=== PATIENT | female | born 1960 | race Caucasian/White ===

== ENCOUNTER 2024-04-24 09:32 | Outpatient (RCR) | payer OTHER, SELFPAY ==
[2024-04-20 11:23] LABS: Basophils # (Auto) 0.1 Thou/mm3 (0.0-0.2); Basophils % (Auto) 1 % (0-2.5); Eosinophils % (Auto) 1 % (0-10); Hematocrit 38.2 % (36.0-46.0); Hemoglobin 12.9 g/dL (12.0-16.0); Immature Granulocytes % (Auto) 0 % (0-0); Immature Granulocytes Auto 0.01 Thou/mm3 (0.00-0.00); Lymphocytes # (Auto) 0.8 Thou/mm3 (1.0-4.8); Lymphocytes % (Auto) 16 % (10-50); Mean Corpuscular HGB Conc 33.8 g/dl (31.0-37.0); Mean Corpuscular Hemoglobin 34.6 pg (25.0-35.0); Mean Corpuscular Volume 102 fL (80-100); Monocytes # (Auto) 0.3 Thou/mm3 (0.0-0.8); Monocytes % (Auto) 6 % (0-12); Neutrophils # (Auto) 3.6 Thou/mm3 (1.8-7.7); Neutrophils % (Auto) 76 % (37-80); Nucleated Red Blood Cell % 0 /100 WBC (0); Platelet Count 166 Thou/mm3 (140-440); RDW Standard Deviation 47.1 fL (36.4-46.3); Red Blood Count 3.73 Miln/mm3 (4.00-5.20); White Blood Count 4.7 Thou/mm3 (3.6-11.0)
[2024-04-20 12:05] LABS: Alanine Aminotransferase 18 U/L (10-49); Albumin, Serum 4.5 gm/dL (3.4-4.8); Albumin/Globulin Ratio 1.8 (1.2-2.2); Alkaline Phosphatase 86 U/L (46-116); Anion Gap 10 (7-16); Aspartate Amino Transferase 20 U/L (0-34); BUN/Creatinine Ratio 20 Ratio (12-20); Bilirubin,Total 0.5 mg/dL (0.3-1.2); Blood Urea Nitrogen 14 mg/dL (9-23); Calcium 9.4 mg/dL (8.3-10.6); Calcium (Corrected) 9.4 mg/dL (8.5-10.1); Carbon Dioxide 25.6 mMol/L (20.0-31.0); Chloride 105 mMol/L (98-107); Creatinine (Component) 0.7 mg/dL (0.6-1.3); Folate 12.75 ng/mL (>5.38); Globulin 2.5 gm/dL (2.3-3.5); Glucose 125 mg/dL (74-106); Osmolality,Calculated 282 (275-295); Potassium 3.6 mMol/L (3.4-5.1); Sodium 141 mMol/L (136-145); Vitamin B12 361 pg/mL (211-911); eGFR > 60 See Note
[2024-04-20 12:09] LABS: Carcinoembryonic Antigen 1.7 ng/mL (0.0-5.0)
--- NOTE | 2024-04-23 11:00 | CTCFLWUP_ITS ---
Patient: MACI GREEN : 1960 Page 2 of 2 FOLLOW UP NOTE DATE OF SERVICE: 04/23/2024 NAME: MACI GREEN ACCOUNT: [id number] : 1960 AGE: 63 INTERVAL HISTORY: Patient is on Ibrance and letrozole for her advanced breast cancer. Her last scan in December 2023 was negative. Patient says she was doing very well on the treatment other than mild fatigue. She no ticed having burning urination last week and was started on antibiotics per her primary care. Patien t's symptoms resolved and now doing better. She is on her drug holiday week. She will be restarting Ibrance tomorrow. She is here to review her blood work. 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 Patient is taking letrozole and Ibranc e and tolerating well. She is in wheelchair secondary to her cerebral palsy. 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 She understands she is in complete remission and very thankful to her oncologist. Patient takes calcium and vitamin D3 daily. Oncological history November 2017: Patient noticed recurrent rash on the underside of the left breast. June 2018: The rash on the left breast has become more prominent. 11/06/2018: Patient had left breast skin punch biopsy. Pathology showed ER positive, HI positive mode rately differentiated invasive ductal carcinoma. HER-2/freya staining was not done. 12/20/2018: Patient had a PET CT scan done. PET scan showed multiple FDG avid cutaneous breast nodule s, irregular, hypermetabolic skin thickening and confluent FDG avid intraparenchymal masses. Finding s are suspicious for inflammatory breast cancer. Bilateral FDG avid axillary and lower cervical lymp h nodes, suspicious for manjeet metastasis. An FDG avid retroperitoneal lymph node measuring up to 20 mm in short axis with an SUV max of 4.4 and demonstrates mass-effect on esophagus. Scattered FDG michael d osseous metastasis. Moderate left pleural effusion with associated subtotal atelectasis of the lef t lower lobe and lingula. Trace right pleural effusion. Moderate pericardial effusion. 12/28/2018: Patient had a repeat left breast skin nodule punch biopsy at [facility] of [place]. Patholog y confirmed infiltrating ductal carcinoma histologic grade 2. ER 10% positive, HI 20% positive, HER- 2/freya negative, Ki-67 25% (unfavorable). She also had Chemo-Port placed on the right side of the jose [address]. 01/29/2019: Ultrasound-guided left-sided thoracentesis. 700 mL of fluid removed. Cytology was positi ve for malignant pericardial effusion. 01/31/2019: Echocardiogram?ejection fraction between 55 and 60%. Large pericardial effusion with ligh t right atrial collapse suggesting early tamponade was also noted. 02/03/2019: Patient had pericardiocentesis done at [facility]. 300 cc of serous fluid was drained out. Pericardial drainage catheters was placed which was removed few days later. 02/19/2019: BRCA testing is negative for mutations. 02/22/2019? 05/03/2019: Patient had 4 cycles of AC chemotherapy. 05/24/2019?10/04/2019: Patient was treated with weekly Taxol. 10/10/2019: Patient is started on letrozole 2.5 mg p.o. daily and Ibrance 75 mg p.o. daily on a 21-day on and 7 days off regimen. 12/03/2019: Patient complains of lower extremity swelling for 3 weeks duration. Echocardiogram?LVEF 50-55%. Patient also had Doppler ultrasound of both lower extremities which was negative for DVT. 07/04/2020: PET CT scan? 12/03/2020: PET CT scan? 05/01/2021: [facility] CDx? 07/23/2021: PET/CT scan? 02/04/2022: PET/CT scan? 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 aspirin - 81 mg 1 tab As directed 2. Calcium + Vitamin D - 600 mg calcium- 200 unit 1 tab Twice a Day 3. Claritin - 10 mg Daily 4. ferrous sulfate - 325 mg (65 mg iron) 1 tab Daily 5. Ibrance - 75 mg 1 tab Daily 6. letrozole - 2.5 mg 1 tab Daily 7. metoprolol succinate - 25 mg 1 tab Daily Medications Last Reconciled by Alisha Miranda MA on 04/23/2024 ALLERGIES: Penicillins; Sulfa (Sulfonamide Antibiotics); codeine sulfate REVIEW OF SYSTEMS: A complete 14-point review of systems was performed and is negative except as noted in interval histo ry. PHYSICAL EXAMINATION: VITAL SIGNS: PAIN: 0 - No pain ECOG Performance Status: 1 - Symptomatic; ambulatory; restricted in strenuous activity GENERAL APPEARANCE: Appears well, in no apparent distress, appropriately interactive. HEENT: Normocephalic, no temporal wasting, normal conjunctiva, no scleral icterus, normal hearing, li ps without lesions, neck normal range of motion. CARDIOVASCULAR: Not assessed. PULMONARY: Normal respiratory effort, no respiratory distress or use of accessory muscles, speaking i n full sentences, no tachypnea. EXTREMITIES: No pedal edema or cyanosis. SKIN: Normal skin appearance. NEUROLOGIC: Alert and oriented x4. Patient is wheelchair-bound secondary to cerebral palsy PSHYCHIATRIC: Appropriate affect, mood normal, behavior normal, intact thought and speech. LABORATORY DATA: I have personally reviewed and interpreted each of the patient?s relevant lab tests, abnormal finding s are below: Date 04/20/24 ??GLUCOSE,RANDOM?(mg/dL) 125?H ??BLOOD?UREA?NITROGEN?(mg/dL) 14 ??CREATININE?(mg/dL) 0.70 ??SODIUM?(mmol/L) 141 ??POTASSIUM?(mmol/L) 3.6 ??CHLORIDE?(mmol/L) 105 ??CrCl?(CandG)?(ml/min) 95.47 ??AST/SGOT?(Unit/L) 20 ??ALT/SGPT?(Unit/L) 18 ??ALKALINE?PHOSPHATASE?(Unit/L) 86 ??BILIRUBIN,?TOTAL?(mg/dL) 0.5 ??PROTEIN?TOTAL?(gm/dl) 7.0 ??ALBUMIN,?SERUM?(gm/dl) 4.5 ??GLOBULIN?(gm/dl) 2.5 ??ALBUMIN/GLOBULIN?RATIO 1.8 ??CALCIUM,?SERUM?(mg/dL) 9.4 ??CALCIUM?SERUM?(CORRECTED)?(mg/dL) 9.4 ASSESSMENT/PLAN: #1 metastatic ER positive HI positive HER2 negative inflammatory left-sided breast cancer with a dif fuse metastatic disease now in complete remission on Activent endocrine therapy with Ibrance and letr ozole PET CT scan done on 09/22/2023 is essentially negative for metastatic disease.. Tolerating letrozole and Ibrance very well without any significant side effects. [facility] CDx test did not show any actionable mutations She is tolerating letrozole, Ibrance as well as Xgeva very well without any side effects. Initially status post 4 cycles of AC chemotherapy followed by weekly Taxol. Dr. Jonas is following her for history of pericardial effusion which is resolved at this time. History of left-sided thoracentesis as well as pericardiocentesis done as described above in the past . Metastatic ER positive, HI positive, HER-2/freya negative inflammatory left-sided breast cancer with di ffuse metastatic disease as described above. Patient advised to restart Ibrance #2 cerebral palsy. Wheelchair-bound follow-up with PCP #3 pancytopenia Patient have leukopenia with A NC above thousand Continue to monitor closely Will check folate and B12 as patient have elevated MCV Patient did not complete B12 folic acid or other nutritional labs and advised to repeat them today CBC CMP folic acid B12 ferritin iron panel RETURN TO CLINIC: Telephone visit in 2 months BILLING AND COMPLIANCE: I reviewed external records from providers outside my specialty as summarized above. I spent a total of 50 minutes on this patient?s care on the day of their visit excluding time spent related to any bi lled procedures. This time includes time spent with the patient as well as time spent documenting in the medical record, reviewing patients records and tests, obtaining history, placing orders, communi cating with other healthcare professionals, counseling the patient, family or caregiver, and/or care coordination for the diagnoses above. Electronically Signed by: Cesar Trammell MD T: 10:58 AM CC: Kathrin?Larisa? PCP: Darrius Beal Referring: Darrius Beal This document was completed utilizing speech recognition software. Grammatical errors, random word in sertions, pronoun errors, and incomplete sentences are an occasional consequence of this system due t o software limitations, ambient noise, and hardware issues. Any formal questions or concerns about th e content, text or information contained within the body of this dictation should be directly address ed to the provider for clarification.
[2024-04-24 11:05] LABS: Folate 14.91 ng/mL (>5.38); Vitamin B12 376 pg/mL (211-911)
[2024-04-24 11:06] LABS: Ferritin 784 ng/mL (7.3-270.7); Total Iron Binding Capacity 251 mcg/dL (250-425)
[2024-04-24 11:17] LABS: Iron 69 mcg/dL (50-170); Percent Iron Saturation 27 % (20-55); Unsaturated Iron Binding 182 (225-295)
[2024-04-24 11:39] LABS: CA 15-3 12.6 U/mL (<32.4)
== END 2024-04-24 23:59 | disposition home or self-care (01) ==
LOC: SCTC 09:32
PROVIDERS: PCP Nurse Practitioner Family; Referring Provider Nurse Anesthetist, Certified Registered; Visit Provider Internal Medicine Hematology & Oncology
DX: C50.112 Malignant neoplasm of central portion of left female breast (principal); Z17.0 Estrogen receptor positive status [ER+]; Z17.21 Progesterone receptor positive status; Z17.32 Human epidermal growth factor receptor 2 negative status; Z79.811 Long term (current) use of aromatase inhibitors; D61.818 Other pancytopenia; Z92.21 Personal history of antineoplastic chemotherapy
CPT/HCPCS: 36591; 80053; 82378; 82607; 82728; 82746; 83540; 83550; 85025; 86300; 96372; 99212; A4216; J0897; J1642; G0463

== ENCOUNTER 2024-07-23 13:14 | Outpatient (RCR) | payer OTHER, SELFPAY ==
[2024-07-18 16:03] LABS: Basophils # (Auto) 0.1 Thou/mm3 (0.0-0.2); Basophils % (Auto) 1 % (0-2.5); Eosinophils # (Auto) 0.1 Thou/mm3 (0.0-0.5); Eosinophils % (Auto) 2 % (0-10); Hematocrit 35.3 % (36.0-46.0); Hemoglobin 12.8 g/dL (12.0-16.0); Immature Granulocytes % (Auto) 0 % (0-0); Immature Granulocytes Auto 0.01 Thou/mm3 (0.00-0.00); Lymphocytes # (Auto) 1.2 Thou/mm3 (1.0-4.8); Lymphocytes % (Auto) 32 % (10-50); Mean Corpuscular HGB Conc 36.3 g/dl (31.0-37.0); Mean Corpuscular Hemoglobin 35.6 pg (25.0-35.0); Mean Corpuscular Volume 98 fL (80-100); Monocytes # (Auto) 0.4 Thou/mm3 (0.0-0.8); Monocytes % (Auto) 11 % (0-12); Neutrophils % (Auto) 53 % (37-80); Nucleated Red Blood Cell % 0 /100 WBC (0); Platelet Count 187 Thou/mm3 (140-440); RDW Standard Deviation 47.5 fL (36.4-46.3); White Blood Count 3.8 Thou/mm3 (3.6-11.0)
[2024-07-18 16:22] LABS: Alanine Aminotransferase 32 U/L (10-49); Albumin, Serum 3.9 gm/dL (3.4-4.8); Albumin/Globulin Ratio 1.6 (1.2-2.2); Alkaline Phosphatase 93 U/L (46-116); Anion Gap 9 (7-16); Aspartate Amino Transferase 27 U/L (0-34); BUN/Creatinine Ratio 27 Ratio (12-20); Bilirubin,Total 0.2 mg/dL (0.3-1.2); Blood Urea Nitrogen 16 mg/dL (9-23); Calcium 9.4 mg/dL (8.3-10.6); Calcium (Corrected) 9.5 mg/dL (8.5-10.1); Chloride 107 mMol/L (98-107); Creatinine (Component) 0.6 mg/dL (0.6-1.3); Globulin 2.4 gm/dL (2.3-3.5); Glucose 85 mg/dL (74-106); Osmolality,Calculated 285 (275-295); Potassium 3.5 mMol/L (3.4-5.1); Sodium 143 mMol/L (136-145); Total Protein 6.3 gm/dL (5.7-8.2); eGFR > 60 See Note
[2024-07-18 16:38] LABS: CA 15-3 12.6 U/mL (<32.4); Carcinoembryonic Antigen 1.8 ng/mL (0.0-5.0)
--- NOTE | 2024-07-19 14:12 | CTCFLWUP_ITS ---
Patient: MACI GREEN : 1960 Page 2 of 2 FOLLOW UP NOTE DATE OF SERVICE: 07/19/2024 NAME: MACI GREEN ACCOUNT: [id number] : 1960 AGE: 63 INTERVAL HISTORY: Patient is on Ibrance and letrozole for her advanced breast cancer. Her last scan in December 2023 was negative. Patient says she was doing very well on the treatment other than mild fatigue. Patient have no problems with ibrance. She have no new symptoms. 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 Patient is taking letrozole and Ibrance and tolerating well. She is in wheelchair secondary to her cerebral palsy. 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 She understands she is in complete remission and very thankful to her oncologist. Patient takes calcium and vitamin D3 daily. Oncological history November 2017: Patient noticed recurrent rash on the underside of the left breast. June 2018: The rash on the left breast has become more prominent. 11/06/2018: Patient had left breast skin punch biopsy. Pathology showed ER positive, MT positive moderately differentiated invasive ductal carcinoma. HER- 2/freya staining was not done. 12/20/2018: Patient had a PET CT scan done. PET scan showed multiple FDG avid cutaneous breast nodules, irregular, hypermetabolic skin thickening and confluent FDG avid intraparenchymal masses. Findings are suspicious for inflammatory breast cancer. Bilateral FDG avid axillary and lower cervical lymp h nodes, suspicious for manjeet metastasis. An FDG avid retroperitoneal lymph node measuring up to 20 mm in short axis with an SUV max of 4.4 and demonstrates mass-effect on esophagus. Scattered FDG avid osseous metastasis. Moderate left pleural effusion with associated subtotal atelectasis of the left lower lobe and lingula. Trace right pleural effusion. Moderate pericardial effusion. 12/28/2018: Patient had a repeat left breast skin nodule punch biopsy at [facility] of [place]. Pathology confirmed infiltrating ductal carcinoma histologic grade 2. ER 10% positive, MT 20% positive, HER-2/freya negative, Ki-67 25% (unfavorable). She also had Chemo-Port placed on the right side of the chest. 01/29/2019: Ultrasound-guided left-sided thoracentesis. 700 mL of fluid removed. Cytology was positive for malignant pericardial effusion. 01/31/2019: Echocardiogram?ejection fraction between 55 and 60%. Large pericardial effusion with light right atrial collapse suggesting early tamponade was also noted. 02/03/2019: Patient had pericardiocentesis done at [facility]. 300 cc of serous fluid was drained out. Pericardial drainage catheters was placed which was removed few days later. 02/19/2019: BRCA testing is negative for mutations. 02/22/2019? 05/03/2019: Patient had 4 cycles of AC chemotherapy. 05/24/2019?10/04/2019: Patient was treated with weekly Taxol. 10/10/2019: Patient is started on letrozole 2.5 mg p.o. daily and Ibrance 75 mg p.o. daily on a 21-day on and 7 days off regimen. 12/03/2019: Patient complains of lower extremity swelling for 3 weeks duration. Echocardiogram?LVEF 50-55%. Patient also had Doppler ultrasound of both lower extremities which was negative for DVT. 07/04/2020: PET CT scan? 12/03/2020: PET CT scan? 05/01/2021: [facility] CDx? 07/23/2021: PET/CT scan? 02/04/2022: PET/CT scan? 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 aspirin - 81 mg 1 tab As directed 2. Calcium + Vitamin D - 600 mg calcium- 200 unit 1 tab Twice a Day 3. Claritin - 10 mg Daily 4. ferrous sulfate - 325 mg (65 mg iron) 1 tab Daily 5. Ibrance - 75 mg 1 tab Daily 6. letrozole - 2.5 mg 1 tab Daily 7. metoprolol succinate - 25 mg 1 tab Daily Medications Last Reconciled by Alisha Miranda MA on 07/19/2024 ALLERGIES: Penicillins; Sulfa (Sulfonamide Antibiotics); codeine sulfate REVIEW OF SYSTEMS: A complete 14-point review of systems was performed and is negative except as noted in interval history. PHYSICAL EXAMINATION: VITAL SIGNS: PAIN: 0 - No pain ECOG Performance Status: 0 - Asymptomatic and fully active GENERAL APPEARANCE: Appears well, in no apparent distress, appropriately interactive. HEENT: Normocephalic, no temporal wasting, normal conjunctiva, no scleral icterus, normal hearing, lips without lesions, neck normal range of motion. CARDIOVASCULAR: Not assessed. PULMONARY: Normal respiratory effort, no respiratory distress or use of accessory muscles, speaking in full sentences, no tachypnea. EXTREMITIES: No pedal edema or cyanosis. SKIN: Normal skin appearance. NEUROLOGIC: Alert and oriented x4. Patient is wheelchair-bound secondary to cerebral palsy PSHYCHIATRIC: Appropriate affect, mood normal, behavior normal, intact thought and speech. LABORATORY DATA: I have personally reviewed and interpreted each of the patient?s relevant lab tests, abnormal findings are below: Date 04/24/24 07/18/24 ??WHITE?BLOOD?COUNT?(Thou/mm3) ? 3.8 ??RED?BLOOD?COUNT?(Miln/mm3) ? 3.60?L ??HEMOGLOBIN?(gm/dl) ? 12.8 ??HEMATOCRIT?(%) ? 35.3?L ??PLATELET?COUNT?(Thou/mm3) ? 187 ??NEUTROPHILS?%,?AUTO?(%) ? 53 ??LYMPH?%,?AUTO?(%) ? 32 ??NEUTROPHILS,?AUTO?(Thou/mm3) ? 2.0 ??GLUCOSE,RANDOM?(mg/dL) ? 85 ??BLOOD?UREA?NITROGEN?(mg/dL) ? 16 ??CREATININE?(mg/dL) ? 0.60 ??SODIUM?(mmol/L) ? 143 ??POTASSIUM?(mmol/L) ? 3.5 ??CHLORIDE?(mmol/L) ? 107 ??CrCl?(CandG)?(ml/min) ? 113.89 ??AST/SGOT?(Unit/L) ? 27 ??ALT/SGPT?(Unit/L) ? 32 ??ALKALINE?PHOSPHATASE?(Unit/L) ? 93 ??BILIRUBIN,?TOTAL?(mg/dL) ? 0.2?L ??PROTEIN?TOTAL?(gm/dl) ? 6.3 ??ALBUMIN,?SERUM?(gm/dl) ? 3.9 ??GLOBULIN?(gm/dl) ? 2.4 ??ALBUMIN/GLOBULIN?RATIO ? 1.6 ??CALCIUM,?SERUM?(mg/dL) ? 9.4 ??CALCIUM?SERUM?(CORRECTED)?(mg/dL) ? 9.5 ??CEA?(O*)?(ng/ml) ? 1.8 ??TOTAL?IRON?BINDING?CAP?(S*)?(mcg/dL) 251 ? ??UNBOUND?IBC?(mcg/dL) 182?L ? ASSESSMENT/PLAN: #1 metastatic ER positive MT positive HER2 negative inflammatory left-sided breast cancer with a diffuse metastatic disease now in complete remission on Activent endocrine therapy with Ibrance and letrozole PET CT scan done on 09/22/2023 is essentially negative for metastatic disease.. Tolerating letrozole and Ibrance very well without any significant side effects. [employer] CDx test did not show any actionable mutations She is tolerating letrozole, Ibrance as well as Xgeva very well without any side effects. Initially status post 4 cycles of AC chemotherapy followed by weekly Taxol. Dr. Jonas is following her for history of pericardial effusion which is resolved at this time. History of left-sided thoracentesis as well as pericardiocentesis done as described above in the past. Patient advised to restart Ibrance Will get pet scan and laura for monitoring Cont current therapy #2 cerebral palsy. Wheelchair-bound follow-up with PCP #3 pancytopenia Patient have leukopenia with ANC above thousand Continue to monitor closely Will check folate and B12 as patient have elevated MCV Patient did not complete B12 folic acid or other nutritional labs and advised to repeat them today ORDERS: Order # Description [id number] Comprehensive Metabolic Panel - 12 + CBC with Auto Diff [id number] CA 15-3 [id number] CEA [id number] Follow Up 3 Months [id number] PET/CT of Skull to mid-thigh for Restaging RETURN TO CLINIC: 2 months BILLING AND COMPLIANCE: I reviewed external records from providers outside my specialty as summarized above. I spent a total of 50 minutes on this patient?s care on the day of their visit excluding time spent related to any billed procedures. This time includes time spent with the patient as well as time spent documenting in the medical record, reviewing patients records and tests, obtaining history, placing orders, communicating with other healthcare professionals, counseling the patient, family or caregiver, and/or care coordination for the diagnoses above. Electronically Signed by: Cesar Trammell MD T: 2:10 PM CC: CHRISTINA Ramírez PCP: Cesar Trammell Referring: Cesar Trammell This document was completed utilizing speech recognition software. Grammatical errors, random word insertions, pronoun errors, and incomplete sentences are an occasional consequence of this system due to software limitations, ambient noise, and hardware issues. Any formal questions or concerns about the content, text or information contained within the body of this dictation should be directly addressed to the provider for clarification.
== END 2024-07-23 23:59 | disposition home or self-care (01) ==
LOC: SCTC 13:14
PROVIDERS: PCP Family Medicine; Referring Provider Internal Medicine Hematology & Oncology; Visit Provider Internal Medicine Hematology & Oncology
DX: C50.112 Malignant neoplasm of central portion of left female breast (principal); Z17.0 Estrogen receptor positive status [ER+]; Z17.21 Progesterone receptor positive status; Z17.32 Human epidermal growth factor receptor 2 negative status; Z79.811 Long term (current) use of aromatase inhibitors; G80.9 Cerebral palsy, unspecified; Z99.3 Dependence on wheelchair; D61.818 Other pancytopenia
CPT/HCPCS: 36591; 80053; 82378; 85025; 86300; 96372; 99212; A4216; J0897; J1642; G0463

== ENCOUNTER → 2024-07-31 | Outpatient (CLI) | payer OTHER, SELFPAY ==
[2024-07-31 10:46] LABS: Basophils # (Auto) 0.1 Thou/mm3 (0.0-0.2); Basophils % (Auto) 1 % (0-2.5); Eosinophils # (Auto) 0.1 Thou/mm3 (0.0-0.5); Eosinophils % (Auto) 2 % (0-10); Hematocrit 41.8 % (36.0-46.0); Hemoglobin 14.6 g/dL (12.0-16.0); Immature Granulocytes % (Auto) 0 % (0-0); Immature Granulocytes Auto 0.02 Thou/mm3 (0.00-0.00); Immature Reticulocyte Fraction 13.7 % (3.0-15.9); Lymphocytes # (Auto) 0.9 Thou/mm3 (1.0-4.8); Lymphocytes % (Auto) 21 % (10-50); Mean Corpuscular HGB Conc 34.9 g/dl (31.0-37.0); Mean Corpuscular Hemoglobin 35.3 pg (25.0-35.0); Mean Corpuscular Volume 101 fL (80-100); Monocytes # (Auto) 0.3 Thou/mm3 (0.0-0.8); Monocytes % (Auto) 6 % (0-12); Neutrophils # (Auto) 3.1 Thou/mm3 (1.8-7.7); Neutrophils % (Auto) 70 % (37-80); Nucleated Red Blood Cell % 0 /100 WBC (0); Platelet Count 256 Thou/mm3 (140-440); RDW Standard Deviation 49.2 fL (36.4-46.3); Red Blood Count 4.14 Miln/mm3 (4.00-5.20); Reticulocyte % (Auto) 1.5 % (0.5-1.5); Reticulocyte Absolute Auto 61.7 Biln/L (25.0-75.0); Reticulocyte Hgb Content 41.1 pg (28.0-35.0); White Blood Count 4.5 Thou/mm3 (3.6-11.0)
[2024-07-31 11:03] LABS: Ferritin 1129 ng/mL (7.3-270.7); T4 (Thyroxine) 10.5 mcg/dL (4.5-10.9)
[2024-07-31 11:07] LABS: Cardiac Risk Estimate 2.9 RATIO (3.7-5.6); Cholesterol 203 mg/dL (132-200); HDL Cholesterol 70 mg/dL (40-60); LDL Cholesterol,Calculated 102 mg/dL (0-130); Thyroid Stimulating Hormone 3.55 uIU/mL (0.55-4.78); Triglycerides 154 mg/dL (30-150)
[2024-07-31 11:25] LABS: Glucose Estimated Average 103 mg/dL (80-131); Hemoglobin A1C 5.2 % Hgb (4.8-6.0)
[2024-08-03 06:56] LABS: Thyroid Peroxidase Antibodies* 399 IU/mL (<9)
== END | disposition home or self-care (01) ==
LOC: COPL 09:32
PROVIDERS: PCP Nurse Practitioner Family; Referring Provider Nurse Practitioner Family; Visit Provider Nurse Practitioner Family
DX: R79.89 Other specified abnormal findings of blood chemistry (principal); R53.83 Other fatigue; E78.5 Hyperlipidemia, unspecified
CPT/HCPCS: 36415; 80061; 82728; 83036; 84436; 84443; 85025; 85046; 86376

== ENCOUNTER 2024-08-08 08:25 | Outpatient (RCR) | payer OTHER, SELFPAY | END 2024-08-22 23:59 | disposition home or self-care (01) | LOC: SCTC 08:25 | PROVIDERS: PCP Nurse Practitioner Family; Referring Provider Nurse Practitioner Family; Visit Provider Internal Medicine Hematology & Oncology | DX: Z45.2 Encounter for adjustment and management of vascular access device (principal); C50.112 Malignant neoplasm of central portion of left female breast; Z17.0 Estrogen receptor positive status [ER+]; Z17.21 Progesterone receptor positive status; Z17.32 Human epidermal growth factor receptor 2 negative status; Z79.811 Long term (current) use of aromatase inhibitors; G80.9 Cerebral palsy, unspecified; D61.818 Other pancytopenia | CPT/HCPCS: 96523; A4216; J1642 ==

== ENCOUNTER 2024-08-23 08:10 | Outpatient (RCR) | payer OTHER, SELFPAY | END 2024-09-22 23:59 | disposition home or self-care (01) | LOC: SCTC 08:10 | PROVIDERS: PCP Nurse Practitioner Family; Referring Provider Nurse Practitioner Family; Visit Provider Internal Medicine Hematology & Oncology | DX: C50.112 Malignant neoplasm of central portion of left female breast (principal); Z17.0 Estrogen receptor positive status [ER+]; Z17.21 Progesterone receptor positive status; Z17.32 Human epidermal growth factor receptor 2 negative status; Z79.811 Long term (current) use of aromatase inhibitors; G80.9 Cerebral palsy, unspecified; D61.818 Other pancytopenia; Z99.3 Dependence on wheelchair | CPT/HCPCS: 36591; A4216; J1642 ==

== ENCOUNTER → 2024-09-25 | Outpatient (CLI) | payer OTHER, SELFPAY ==
[2024-09-25 09:45] LABS: Basophils # (Auto) 0.1 Thou/mm3 (0.0-0.2); Basophils % (Auto) 3 % (0-2.5); Eosinophils # (Auto) 0.1 Thou/mm3 (0.0-0.5); Eosinophils % (Auto) 6 % (0-10); Hematocrit 37.4 % (36.0-46.0); Hemoglobin 13.3 g/dL (12.0-16.0); Immature Granulocytes % (Auto) 0 % (0-0); Lymphocytes # (Auto) 0.8 Thou/mm3 (1.0-4.8); Lymphocytes % (Auto) 32 % (10-50); Mean Corpuscular HGB Conc 35.6 g/dl (31.0-37.0); Mean Corpuscular Hemoglobin 37.2 pg (25.0-35.0); Mean Corpuscular Volume 105 fL (80-100); Monocytes # (Auto) 0.2 Thou/mm3 (0.0-0.8); Monocytes % (Auto) 8 % (0-12); Neutrophils # (Auto) 1.3 Thou/mm3 (1.8-7.7); Neutrophils % (Auto) 52 % (37-80); Nucleated Red Blood Cell % 0 /100 WBC (0); Platelet Count 242 Thou/mm3 (140-440); RDW Standard Deviation 50.5 fL (36.4-46.3); Red Blood Count 3.58 Miln/mm3 (4.00-5.20)
[2024-09-25 10:01] LABS: White Blood Count 2.6 Thou/mm3 (3.6-11.0)
[2024-09-25 10:42] LABS: Ferritin 576 ng/mL (7.3-270.7)
[2024-10-01 06:47] LABS: Thyroid Peroxidase Antibodies* 335 IU/mL (<9)
== END | disposition home or self-care (01) ==
LOC: COPL 08:40
PROVIDERS: PCP Family Medicine; Referring Provider Nurse Practitioner Family; Visit Provider Nurse Practitioner Family
DX: R79.89 Other specified abnormal findings of blood chemistry (principal); R94.6 Abnormal results of thyroid function studies
CPT/HCPCS: 36415; 82728; 85025; 86376

== ENCOUNTER 2024-10-22 11:11 | Outpatient (RCR) | payer OTHER, SELFPAY ==
[2024-10-08 10:29] LABS: Basophils # (Auto) 0.1 Thou/mm3 (0.0-0.2); Basophils % (Auto) 2 % (0-2.5); Eosinophils # (Auto) 0.1 Thou/mm3 (0.0-0.5); Eosinophils % (Auto) 4 % (0-10); Hematocrit 35.7 % (36.0-46.0); Hemoglobin 12.6 g/dL (12.0-16.0); Immature Granulocytes % (Auto) 0 % (0-0); Lymphocytes # (Auto) 0.9 Thou/mm3 (1.0-4.8); Lymphocytes % (Auto) 33 % (10-50); Mean Corpuscular HGB Conc 35.3 g/dl (31.0-37.0); Mean Corpuscular Hemoglobin 36.4 pg (25.0-35.0); Mean Corpuscular Volume 103 fL (80-100); Monocytes # (Auto) 0.3 Thou/mm3 (0.0-0.8); Monocytes % (Auto) 10 % (0-12); Neutrophils # (Auto) 1.4 Thou/mm3 (1.8-7.7); Neutrophils % (Auto) 50 % (37-80); Nucleated Red Blood Cell % 0 /100 WBC (0); Platelet Count 154 Thou/mm3 (140-440); RDW Standard Deviation 50.5 fL (36.4-46.3); Red Blood Count 3.46 Miln/mm3 (4.00-5.20)
[2024-10-08 10:40] LABS: White Blood Count 2.8 Thou/mm3 (3.6-11.0)
[2024-10-19 09:45] LABS: Basophils # (Auto) 0.1 Thou/mm3 (0.0-0.2); Basophils % (Auto) 3 % (0-2.5); Eosinophils # (Auto) 0.1 Thou/mm3 (0.0-0.5); Eosinophils % (Auto) 2 % (0-10); Hematocrit 37.6 % (36.0-46.0); Hemoglobin 13.4 g/dL (12.0-16.0); Immature Granulocytes % (Auto) 0 % (0-0); Immature Granulocytes Auto 0.01 Thou/mm3 (0.00-0.00); Lymphocytes # (Auto) 0.8 Thou/mm3 (1.0-4.8); Lymphocytes % (Auto) 25 % (10-50); Mean Corpuscular HGB Conc 35.6 g/dl (31.0-37.0); Mean Corpuscular Volume 104 fL (80-100); Monocytes # (Auto) 0.2 Thou/mm3 (0.0-0.8); Monocytes % (Auto) 5 % (0-12); Neutrophils # (Auto) 2.1 Thou/mm3 (1.8-7.7); Neutrophils % (Auto) 65 % (37-80); Nucleated Red Blood Cell % 0 /100 WBC (0); Platelet Count 296 Thou/mm3 (140-440); RDW Standard Deviation 48.4 fL (36.4-46.3); Red Blood Count 3.62 Miln/mm3 (4.00-5.20); White Blood Count 3.2 Thou/mm3 (3.6-11.0)
[2024-10-19 10:06] LABS: Alanine Aminotransferase 34 U/L (10-49); Albumin, Serum 4.1 gm/dL (3.4-4.8); Albumin/Globulin Ratio 1.8 (1.2-2.2); Alkaline Phosphatase 78 U/L (46-116); Anion Gap 7 (7-16); Aspartate Amino Transferase 29 U/L (0-34); BUN/Creatinine Ratio 21 Ratio (12-20); Bilirubin,Total 0.5 mg/dL (0.3-1.2); Blood Urea Nitrogen 15 mg/dL (9-23); Calcium 9.1 mg/dL (8.3-10.6); Calcium (Corrected) 9.1 mg/dL (8.5-10.1); Carbon Dioxide 28.6 mMol/L (20.0-31.0); Chloride 107 mMol/L (98-107); Creatinine (Component) 0.7 mg/dL (0.6-1.3); Globulin 2.3 gm/dL (2.3-3.5); Glucose 109 mg/dL (74-106); Osmolality,Calculated 286 (275-295); Potassium 3.6 mMol/L (3.4-5.1); Sodium 143 mMol/L (136-145); Total Protein 6.4 gm/dL (5.7-8.2); eGFR > 60 See Note
[2024-10-19 10:24] LABS: CA 15-3 8.4 U/mL (<32.4); Carcinoembryonic Antigen 1.9 ng/mL (0.0-5.0)
[2024-10-19 13:59] LABS: Band Neutrophils (Manual) 1 % (0-6); Basophils (Manual) 1 % (0-2); Eosinophils (Manual) 3 % (0-4); Lymphocytes (Manual) 23 % (20-44); Monocytes (Manual) 3 % (2-9); Neutrophils (Manual) 69 % (50-70)
--- NOTE | 2024-10-22 12:55 | CTCFLWUP_ITS ---
Patient: MACI GREEN : 1960 Page 2 of 2 FOLLOW UP NOTE DATE OF SERVICE: 10/22/2024 NAME: MACI GREEN ACCOUNT: [id number] : 1960 AGE: 64 INTERVAL HISTORY: Patient is taking Ibrance with letrozole as prescribed. Patient is doing well. 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 Patient is taking letrozole and Ibrance and tolerating well. She is in wheelchair secondary to her cerebral palsy. 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 She understands she is in complete remission and very thankful to her oncologist. Patient takes calcium and vitamin D3 daily. Oncological history November 2017: Patient noticed recurrent rash on the underside of the left breast. June 2018: The rash on the left breast has become more prominent. 11/06/2018: Patient had left breast skin punch biopsy. Pathology showed ER positive, HI positive moderately differentiated invasive ductal carcinoma. HER- 2/freya staining was not done. 12/20/2018: Patient had a PET CT scan done. PET scan showed multiple FDG avid cutaneous breast nodules, irregular, hypermetabolic skin thickening and confluent FDG avid intraparenchymal masses. Findings are suspicious for inflammatory breast cancer. Bilateral FDG avid axillary and lower cervical lymp h nodes, suspicious for manjeet metastasis. An FDG avid retroperitoneal lymph node measuring up to 20 mm in short axis with an SUV max of 4.4 and demonstrates mass-effect on esophagus. Scattered FDG avid osseous metastasis. Moderate left pleural effusion with associated subtotal atelectasis of the left lower lobe and lingula. Trace right pleural effusion. Moderate pericardial effusion. 12/28/2018: Patient had a repeat left breast skin nodule punch biopsy at [facility] of [place]. Pathology confirmed infiltrating ductal carcinoma histologic grade 2. ER 10% positive, HI 20% positive, HER-2/freya negative, Ki-67 25% (unfavorable). She also had Chemo-Port placed on the right side of the chest. 01/29/2019: Ultrasound-guided left-sided thoracentesis. 700 mL of fluid removed. Cytology was positive for malignant pericardial effusion. 01/31/2019: Echocardiogram?ejection fraction between 55 and 60%. Large pericardial effusion with light right atrial collapse suggesting early tamponade was also noted. 02/03/2019: Patient had pericardiocentesis done at [facility]. 300 cc of serous fluid was drained out. Pericardial drainage catheters was placed which was removed few days later. 02/19/2019: BRCA testing is negative for mutations. 02/22/2019? 05/03/2019: Patient had 4 cycles of AC chemotherapy. 05/24/2019?10/04/2019: Patient was treated with weekly Taxol. 10/10/2019: Patient is started on letrozole 2.5 mg p.o. daily and Ibrance 75 mg p.o. daily on a 21-day on and 7 days off regimen. 12/03/2019: Patient complains of lower extremity swelling for 3 weeks duration. Echocardiogram?LVEF 50-55%. Patient also had Doppler ultrasound of both lower extremities which was negative for DVT. 07/04/2020: PET CT scan? 12/03/2020: PET CT scan? 05/01/2021: [facility]? 07/23/2021: PET/CT scan? 02/04/2022: PET/CT scan? 08/31/2023: PET/CT scan 08/08/[address] scan CHEST: There is a right?sided port catheter u?th the tip terminating in the SVC/RA junction. There is some curviiinear_scarring seen in the right iaterai breast, 1ike1y representing a lumpectomy Site. No noduies are seen to suspect recurrence. Maximum SUV of the scarring measures 2.68, 1ike1y due to healing and granuiation tissue. ABDOMEN/PELVIS: There is no evidence for metastatic disease to the abdomen or peivis. There is iowtattenuation to the 1iver consistent with fatty [id number]. There 15 no evidence for hepatic metastatic disease. There appears to be surgicai suture materia] in the ascending coion suggesting patient has either had a prior apgendectomy or possibiy partia] coiectomy. [id number]. There is a ibroid uterus. BONES: No evidence of bony metastasis. Normai physioiogic activity in the brain, heart, GI and tracts. IMPRESSION: * There is no evidence for residua1 or recurrent ieft breast cancer. No evidence for metastatic disease is seen. F-i na'l OTHER MEDICAL HISTORY/CONDITIONS: FAMILY HISTORY: SOCIAL HISTORY: D[employer]ER [employer] W[employer] HISTORY: Vaginal?Bleeding:?0-None MEDICATIONS: 1. aspirin - 81 mg 1 tab As directed 2. Calcium + Vitamin D - 600 mg calcium- 200 unit 1 tab Twice a Day 3. Claritin - 10 mg Daily 4. ferrous sulfate - 325 mg (65 mg iron) 1 tab Daily 5. Ibrance - 75 mg 1 tab Daily 6. letrozole - 2.5 mg 1 tab Daily 7. metoprolol succinate - 25 mg 1 tab Daily Medications Last Reconciled by Alisha Miranda MA on 10/22/2024 ALLERGIES: Penicillins; Sulfa (Sulfonamide Antibiotics); codeine sulfate REVIEW OF SYSTEMS: A complete 14-point review of systems was performed and is negative except as noted in interval history. PHYSICAL EXAMINATION: VITAL SIGNS: Temperature?98.2, B/P?158/92, Oxygen?Saturation?94% PAIN: 0 - No pain ECOG Performance Status: 0 - Asymptomatic and fully active GENERAL APPEARANCE: Appears well, in no apparent distress, appropriately interactive. HEENT: Normocephalic, no temporal wasting, normal conjunctiva, no scleral icterus, normal hearing, lips without lesions, neck normal range of motion. CARDIOVASCULAR: Not assessed. PULMONARY: Normal respiratory effort, no respiratory distress or use of accessory muscles, speaking in full sentences, no tachypnea. EXTREMITIES: No pedal edema or cyanosis. SKIN: Normal skin appearance. NEUROLOGIC: Alert and oriented x4. Patient is wheelchair-bound secondary to cerebral palsy PSHYCHIATRIC: Appropriate affect, mood normal, behavior normal, intact thought and speech. LABORATORY DATA: I have personally reviewed and interpreted each of the patient?s relevant lab tests, abnormal findings are below: Date 10/08/24 10/19/24 ??WHITE?BLOOD?COUNT?(Thou/mm3) 2.8?L 3.2?L ??RED?BLOOD?COUNT?(Miln/mm3) 3.46?L 3.62?L ??HEMOGLOBIN?(gm/dl) 12.6 13.4 ??HEMATOCRIT?(%) 35.7?L 37.6 ??PLATELET?COUNT?(Thou/mm3) 154 296 ??NEUTROPHILS?%,?AUTO?(%) 50 65 ??LYMPH?%,?AUTO?(%) 33 25 ??NEUTROPHILS,?AUTO?(Thou/mm3) 1.4?L 2.1 ??GLUCOSE,RANDOM?(mg/dL) ? 109?H ??BLOOD?UREA?NITROGEN?(mg/dL) ? 15 ??CREATININE?(mg/dL) ? 0.70 ??SODIUM?(mmol/L) ? 143 ??POTASSIUM?(mmol/L) ? 3.6 ??CHLORIDE?(mmol/L) ? 107 ??CrCl?(CandG)?(ml/min) ? 96.43 ??AST/SGOT?(Unit/L) ? 29 ??ALT/SGPT?(Unit/L) ? 34 ??ALKALINE?PHOSPHATASE?(Unit/L) ? 78 ??BILIRUBIN,?TOTAL?(mg/dL) ? 0.5 ??PROTEIN?TOTAL?(gm/dl) ? 6.4 ??ALBUMIN,?SERUM?(gm/dl) ? 4.1 ??GLOBULIN?(gm/dl) ? 2.3 ??ALBUMIN/GLOBULIN?RATIO ? 1.8 ??CALCIUM,?SERUM?(mg/dL) ? 9.1 ??CALCIUM?SERUM?(CORRECTED)?(mg/dL) ? 9.1 ??CEA?(O*)?(ng/ml) ? 1.9 ASSESSMENT/PLAN: #1 metastatic ER positive HI positive HER2 negative inflammatory left-sided breast cancer with a diffuse metastatic disease now in complete remission on Activent endocrine therapy with Ibrance and letrozole PET CT scan done on reviewed PET CT scan from 08/08/2024 and do not reveal any metastatic disease There is comment from radiology that there is some surgical changes and scarring in the ascending colon Patient denies any GI procedures in the past I will send Ms. Green for colonoscopy Referral placed for GI for colonoscopy Liver cirrhosis Patient noted to have liver cirrhosis Patient also had elevated ferritin which has decreased to half after she stopped taking iron Patient has been taking iron since 2008 Patient has now stopped taking oral iron Extensively counseled Patient not to take any oral supplement without being prescribed by physician Will send for hemochromatosis gene as well as FibroScan of the liver Will continue to monitor ferritin Insufficient tissue for MRD testing Mirna not completed History of CHF in the past Patient had pericardial effusion EF has been stable 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 uSmi Wade reviewed and is stable cerebral palsy. Wheelchair-bound follow-up with PCP Leukopenia Patient have leukopenia with ANC above thousand Continue to monitor closely ORDERS: Order # Description [id number] Comprehensive Metabolic Panel - 12 + CBC with Auto Diff + CA 15-3 RETURN TO CLINIC: I reviewed the diagnosis, prognosis, and recommended treatment/procedure options with the patient (and/or their legal employee relations representative), including the potential benefits, risks, side effects and alternative therapies. We also discussed the option of no treatment and the possibility of clinical trial participation, if applicable. All questions were addressed, and they demonstrated understanding. They provided informed consent to proceed with the proposed plan of care. BILLING AND COMPLIANCE: I reviewed external records from providers outside my specialty as summarized above. I spent a total of 50 minutes on this patient?s care on the day of their visit excluding time spent related to any billed procedures. This time includes time spent with the patient as well as time spent documenting in the medical record, reviewing patients records and tests, obtaining history, placing orders, communicating with other healthcare professionals, counseling the patient, family or caregiver, and/or care coordination for the diagnoses above. Electronically Signed by: Cesar Trammell MD T: 12:52 PM CC: Kathrin?Larisa? PCP: Cesar Trammell Referring: Delonte Corona This document was completed utilizing speech recognition software. Grammatical errors, random word insertions, pronoun errors, and incomplete sentences are an occasional consequence of this system due to software limitations, ambient noise, and hardware issues. Any formal questions or concerns about the content, text or information contained within the body of this dictation should be directly addressed to the provider for clarification.
== END 2024-10-22 23:59 | disposition home or self-care (01) ==
LOC: SCTC 11:11
PROVIDERS: PCP Nurse Practitioner Family; Referring Provider Nurse Practitioner Family; Visit Provider Internal Medicine Hematology & Oncology
DX: C50.112 Malignant neoplasm of central portion of left female breast (principal); Z17.0 Estrogen receptor positive status [ER+]; Z17.21 Progesterone receptor positive status; Z17.32 Human epidermal growth factor receptor 2 negative status; Z79.811 Long term (current) use of aromatase inhibitors; K74.60 Unspecified cirrhosis of liver; G80.9 Cerebral palsy, unspecified; Z99.3 Dependence on wheelchair; D72.819 Decreased white blood cell count, unspecified
CPT/HCPCS: 36591; 80053; 82378; 85025; 86300; 99212; A4216; J1642; G0463

== ENCOUNTER 2024-11-05 08:44 | Outpatient (RCR) | payer OTHER, SELFPAY ==
[2024-11-05 09:28] LABS: Basophils # (Auto) 0.1 Thou/mm3 (0.0-0.2); Basophils % (Auto) 2 % (0-2.5); Eosinophils # (Auto) 0.1 Thou/mm3 (0.0-0.5); Eosinophils % (Auto) 2 % (0-10); Hematocrit 36.1 % (36.0-46.0); Hemoglobin 13.3 g/dL (12.0-16.0); Immature Granulocytes Auto 0.01 Thou/mm3 (0.00-0.00); Lymphocytes # (Auto) 1.0 Thou/mm3 (1.0-4.8); Lymphocytes % (Auto) 31 % (10-50); Mean Corpuscular HGB Conc 36.8 g/dl (31.0-37.0); Mean Corpuscular Hemoglobin 36.8 pg (25.0-35.0); Mean Corpuscular Volume 100 fL (80-100); Monocytes # (Auto) 0.4 Thou/mm3 (0.0-0.8); Monocytes % (Auto) 12 % (0-12); Neutrophils # (Auto) 1.7 Thou/mm3 (1.8-7.7); Neutrophils % (Auto) 52 % (37-80); Nucleated Red Blood Cell # 0.00 Thou/mm3 (0.00-0.00); Nucleated Red Blood Cell % 0 /100 WBC (0); Platelet Count 156 Thou/mm3 (140-440); RDW Standard Deviation 45.3 fL (36.4-46.3); Red Blood Count 3.61 Miln/mm3 (4.00-5.20); White Blood Count 3.3 Thou/mm3 (3.6-11.0)
[2024-11-05 09:51] LABS: Alanine Aminotransferase 26 U/L (10-49); Albumin, Serum 4.1 gm/dL (3.4-4.8); Albumin/Globulin Ratio 1.9 (1.2-2.2); Alkaline Phosphatase 78 U/L (46-116); Anion Gap 9 (7-16); Aspartate Amino Transferase 26 U/L (0-34); BUN/Creatinine Ratio 22 Ratio (12-20); Bilirubin,Total 0.5 mg/dL (0.3-1.2); Blood Urea Nitrogen 13 mg/dL (9-23); Calcium 9.3 mg/dL (8.3-10.6); Calcium (Corrected) 9.3 mg/dL (8.5-10.1); Carbon Dioxide 28.1 mMol/L (20.0-31.0); Chloride 107 mMol/L (98-107); Creatinine (Component) 0.6 mg/dL (0.6-1.3); Globulin 2.2 gm/dL (2.3-3.5); Glucose 101 mg/dL (74-106); Osmolality,Calculated 286 (275-295); Potassium 3.6 mMol/L (3.4-5.1); Sodium 144 mMol/L (136-145); Total Protein 6.3 gm/dL (5.7-8.2); eGFR > 60 See Note
[2024-11-05 10:09] LABS: CA 15-3 9.2 U/mL (<32.4)
== END 2024-11-22 23:59 | disposition home or self-care (01) ==
LOC: SCTC 08:44
PROVIDERS: PCP Nurse Practitioner Family; Referring Provider Nurse Practitioner Family; Visit Provider Internal Medicine Hematology & Oncology
DX: C50.112 Malignant neoplasm of central portion of left female breast (principal); Z17.0 Estrogen receptor positive status [ER+]; Z17.21 Progesterone receptor positive status; Z17.32 Human epidermal growth factor receptor 2 negative status; Z79.811 Long term (current) use of aromatase inhibitors; K74.60 Unspecified cirrhosis of liver; G80.9 Cerebral palsy, unspecified; D72.819 Decreased white blood cell count, unspecified
CPT/HCPCS: 36591; 80053; 85025; 86300; 96372; A4216; J0897; J1642

== ENCOUNTER 2024-11-27 08:12 | Outpatient (RCR) | payer OTHER, SELFPAY ==
[2024-11-27 09:18] LABS: Basophils # (Auto) 0.1 Thou/mm3 (0.0-0.2); Basophils % (Auto) 2 % (0-2.5); Eosinophils # (Auto) 0.2 Thou/mm3 (0.0-0.5); Eosinophils % (Auto) 5 % (0-10); Hematocrit 38.2 % (36.0-46.0); Hemoglobin 13.5 g/dL (12.0-16.0); Immature Granulocytes Auto 0.02 Thou/mm3 (0.00-0.00); Lymphocytes # (Auto) 1.0 Thou/mm3 (1.0-4.8); Lymphocytes % (Auto) 31 % (10-50); Mean Corpuscular HGB Conc 35.3 g/dl (31.0-37.0); Mean Corpuscular Hemoglobin 36.8 pg (25.0-35.0); Mean Corpuscular Volume 104 fL (80-100); Monocytes # (Auto) 0.2 Thou/mm3 (0.0-0.8); Monocytes % (Auto) 6 % (0-12); Neutrophils # (Auto) 1.9 Thou/mm3 (1.8-7.7); Neutrophils % (Auto) 57 % (37-80); Nucleated Red Blood Cell # 0.00 Thou/mm3 (0.00-0.00); Nucleated Red Blood Cell % 0 /100 WBC (0); Platelet Count 150 Thou/mm3 (140-440); RDW Standard Deviation 46.8 fL (36.4-46.3); Red Blood Count 3.67 Miln/mm3 (4.00-5.20); White Blood Count 3.3 Thou/mm3 (3.6-11.0)
[2024-11-27 09:34] LABS: Alanine Aminotransferase 35 U/L (10-49); Albumin, Serum 4.3 gm/dL (3.4-4.8); Albumin/Globulin Ratio 2.0 (1.2-2.2); Alkaline Phosphatase 91 U/L (46-116); Anion Gap 10 (7-16); Aspartate Amino Transferase 27 U/L (0-34); BUN/Creatinine Ratio 16 Ratio (12-20); Bilirubin,Total 0.4 mg/dL (0.3-1.2); Blood Urea Nitrogen 13 mg/dL (9-23); Calcium 10.0 mg/dL (8.3-10.6); Calcium (Corrected) 10.0 mg/dL (8.5-10.1); Carbon Dioxide 27.5 mMol/L (20.0-31.0); Chloride 108 mMol/L (98-107); Creatinine (Component) 0.8 mg/dL (0.6-1.3); Globulin 2.2 gm/dL (2.3-3.5); Glucose 114 mg/dL (74-106); Osmolality,Calculated 289 (275-295); Potassium 3.6 mMol/L (3.4-5.1); Sodium 145 mMol/L (136-145); Total Protein 6.5 gm/dL (5.7-8.2); eGFR > 60 See Note
== END 2024-12-23 23:59 | disposition home or self-care (01) ==
LOC: SCTC 08:12
PROVIDERS: PCP Nurse Practitioner Family; Referring Provider Nurse Practitioner Family; Visit Provider Internal Medicine Hematology & Oncology
DX: C50.112 Malignant neoplasm of central portion of left female breast (principal); Z17.0 Estrogen receptor positive status [ER+]; Z17.21 Progesterone receptor positive status; Z17.32 Human epidermal growth factor receptor 2 negative status; Z79.811 Long term (current) use of aromatase inhibitors; K74.60 Unspecified cirrhosis of liver
CPT/HCPCS: 36591; 80053; 85025; A4216; J1642

== ENCOUNTER 2025-01-22 09:17 | Outpatient (RCR) | payer OTHER, SELFPAY ==
[2025-01-01 10:42] LABS: Basophils # (Auto) 0.1 Thou/mm3 (0.0-0.2); Basophils % (Auto) 2 % (0-2.5); Eosinophils # (Auto) 0.3 Thou/mm3 (0.0-0.5); Eosinophils % (Auto) 8 % (0-10); Hematocrit 37.2 % (36.0-46.0); Hemoglobin 13.2 g/dL (12.0-16.0); Immature Granulocytes Auto 0.01 Thou/mm3 (0.00-0.00); Lymphocytes # (Auto) 1.0 Thou/mm3 (1.0-4.8); Lymphocytes % (Auto) 30 % (10-50); Mean Corpuscular HGB Conc 35.5 g/dl (31.0-37.0); Mean Corpuscular Hemoglobin 35.9 pg (25.0-35.0); Mean Corpuscular Volume 101 fL (80-100); Monocytes # (Auto) 0.4 Thou/mm3 (0.0-0.8); Monocytes % (Auto) 13 % (0-12); Neutrophils # (Auto) 1.6 Thou/mm3 (1.8-7.7); Neutrophils % (Auto) 48 % (37-80); Nucleated Red Blood Cell # 0.00 Thou/mm3 (0.00-0.00); Nucleated Red Blood Cell % 0 /100 WBC (0); Platelet Count 147 Thou/mm3 (140-440); RDW Standard Deviation 47.1 fL (36.4-46.3); Red Blood Count 3.68 Miln/mm3 (4.00-5.20); White Blood Count 3.3 Thou/mm3 (3.6-11.0)
[2025-01-01 11:00] LABS: Alanine Aminotransferase 31 U/L (10-49); Albumin, Serum 3.9 gm/dL (3.4-4.8); Albumin/Globulin Ratio 1.8 (1.2-2.2); Alkaline Phosphatase 75 U/L (46-116); Anion Gap 11 (7-16); Aspartate Amino Transferase 31 U/L (0-34); BUN/Creatinine Ratio 22 Ratio (12-20); Bilirubin,Total 0.5 mg/dL (0.3-1.2); Blood Urea Nitrogen 13 mg/dL (9-23); Calcium 9.4 mg/dL (8.3-10.6); Calcium (Corrected) 9.5 mg/dL (8.5-10.1); Carbon Dioxide 27.9 mMol/L (20.0-31.0); Chloride 106 mMol/L (98-107); Creatinine (Component) 0.6 mg/dL (0.6-1.3); Globulin 2.2 gm/dL (2.3-3.5); Glucose 78 mg/dL (74-106); Osmolality,Calculated 287 (275-295); Potassium 3.7 mMol/L (3.4-5.1); Sodium 145 mMol/L (136-145); Total Protein 6.1 gm/dL (5.7-8.2); eGFR > 60 See Note
[2025-01-18 11:14] LABS: Basophils # (Auto) 0.1 Thou/mm3 (0.0-0.2); Basophils % (Auto) 2 % (0-2.5); Eosinophils # (Auto) 0.3 Thou/mm3 (0.0-0.5); Eosinophils % (Auto) 8 % (0-10); Hematocrit 37.8 % (36.0-46.0); Hemoglobin 13.4 g/dL (12.0-16.0); Immature Granulocytes Auto 0.01 Thou/mm3 (0.00-0.00); Lymphocytes # (Auto) 1.0 Thou/mm3 (1.0-4.8); Lymphocytes % (Auto) 29 % (10-50); Mean Corpuscular HGB Conc 35.4 g/dl (31.0-37.0); Mean Corpuscular Hemoglobin 36.5 pg (25.0-35.0); Mean Corpuscular Volume 103 fL (80-100); Monocytes # (Auto) 0.3 Thou/mm3 (0.0-0.8); Monocytes % (Auto) 7 % (0-12); Neutrophils # (Auto) 1.8 Thou/mm3 (1.8-7.7); Neutrophils % (Auto) 53 % (37-80); Nucleated Red Blood Cell # 0.00 Thou/mm3 (0.00-0.00); Nucleated Red Blood Cell % 0 /100 WBC (0); Platelet Count 200 Thou/mm3 (140-440); RDW Standard Deviation 47.4 fL (36.4-46.3); Red Blood Count 3.67 Miln/mm3 (4.00-5.20); White Blood Count 3.4 Thou/mm3 (3.6-11.0)
[2025-01-18 11:39] LABS: Alanine Aminotransferase 34 U/L (10-49); Albumin, Serum 4.2 gm/dL (3.4-4.8); Albumin/Globulin Ratio 1.9 (1.2-2.2); Alkaline Phosphatase 80 U/L (46-116); Anion Gap 10 (7-16); Aspartate Amino Transferase 25 U/L (0-34); BUN/Creatinine Ratio 21 Ratio (12-20); Bilirubin,Total 0.5 mg/dL (0.3-1.2); Blood Urea Nitrogen 15 mg/dL (9-23); Calcium 9.9 mg/dL (8.3-10.6); Calcium (Corrected) 9.9 mg/dL (8.5-10.1); Carbon Dioxide 27.6 mMol/L (20.0-31.0); Chloride 107 mMol/L (98-107); Creatinine (Component) 0.7 mg/dL (0.6-1.3); Globulin 2.2 gm/dL (2.3-3.5); Glucose 90 mg/dL (74-106); Osmolality,Calculated 289 (275-295); Potassium 3.8 mMol/L (3.4-5.1); Sodium 145 mMol/L (136-145); Total Protein 6.4 gm/dL (5.7-8.2); eGFR > 60 See Note
[2025-01-18 11:47] LABS: CA 15-3 9.5 U/mL (<32.4)
== END 2025-01-22 23:59 | disposition home or self-care (01) ==
LOC: SCTC 09:17
PROVIDERS: PCP Nurse Practitioner Family; Referring Provider Nurse Practitioner Family; Visit Provider Internal Medicine Hematology & Oncology
DX: C50.112 Malignant neoplasm of central portion of left female breast (principal); Z17.0 Estrogen receptor positive status [ER+]; Z17.21 Progesterone receptor positive status; Z17.32 Human epidermal growth factor receptor 2 negative status; Z79.811 Long term (current) use of aromatase inhibitors; K74.60 Unspecified cirrhosis of liver; G80.9 Cerebral palsy, unspecified; D72.819 Decreased white blood cell count, unspecified
CPT/HCPCS: 36591; 80053; 85025; 86300; 96372; 99212; A4216; J0897; J1642; G0463

== ENCOUNTER 2025-01-28 08:25 | Outpatient (RCR) | payer OTHER, SELFPAY ==
[2025-01-28 10:35] LABS: Basophils # (Auto) 0.1 Thou/mm3 (0.0-0.2); Basophils % (Auto) 3 % (0-2.5); Eosinophils # (Auto) 0.3 Thou/mm3 (0.0-0.5); Eosinophils % (Auto) 8 % (0-10); Hematocrit 36.9 % (36.0-46.0); Hemoglobin 12.9 g/dL (12.0-16.0); Immature Granulocytes Auto 0.01 Thou/mm3 (0.00-0.00); Lymphocytes # (Auto) 1.0 Thou/mm3 (1.0-4.8); Lymphocytes % (Auto) 30 % (10-50); Mean Corpuscular HGB Conc 35.0 g/dl (31.0-37.0); Mean Corpuscular Hemoglobin 36.3 pg (25.0-35.0); Mean Corpuscular Volume 104 fL (80-100); Monocytes # (Auto) 0.3 Thou/mm3 (0.0-0.8); Monocytes % (Auto) 10 % (0-12); Neutrophils # (Auto) 1.6 Thou/mm3 (1.8-7.7); Neutrophils % (Auto) 49 % (37-80); Nucleated Red Blood Cell # 0.00 Thou/mm3 (0.00-0.00); Nucleated Red Blood Cell % 0 /100 WBC (0); Platelet Count 150 Thou/mm3 (140-440); RDW Standard Deviation 49.4 fL (36.4-46.3); Red Blood Count 3.55 Miln/mm3 (4.00-5.20); White Blood Count 3.3 Thou/mm3 (3.6-11.0)
[2025-01-28 10:37] LABS: Alanine Aminotransferase 36 U/L (10-49); Albumin, Serum 4.1 gm/dL (3.4-4.8); Albumin/Globulin Ratio 1.8 (1.2-2.2); Alkaline Phosphatase 87 U/L (46-116); Anion Gap 11 (7-16); Aspartate Amino Transferase 34 U/L (0-34); BUN/Creatinine Ratio 22 Ratio (12-20); Bilirubin,Total 0.4 mg/dL (0.3-1.2); Blood Urea Nitrogen 13 mg/dL (9-23); Calcium 9.4 mg/dL (8.3-10.6); Calcium (Corrected) 9.4 mg/dL (8.5-10.1); Carbon Dioxide 26.7 mMol/L (20.0-31.0); Chloride 107 mMol/L (98-107); Creatinine (Component) 0.6 mg/dL (0.6-1.3); Globulin 2.3 gm/dL (2.3-3.5); Glucose 108 mg/dL (74-106); Osmolality,Calculated 289 (275-295); Potassium 3.8 mMol/L (3.4-5.1); Sodium 145 mMol/L (136-145); Total Protein 6.4 gm/dL (5.7-8.2); eGFR > 60 See Note
== END 2025-02-22 23:59 | disposition home or self-care (01) ==
LOC: SCTC 08:25
PROVIDERS: PCP Nurse Practitioner Family; Referring Provider Nurse Practitioner Family; Visit Provider Internal Medicine Hematology & Oncology
DX: C50.112 Malignant neoplasm of central portion of left female breast (principal); Z17.0 Estrogen receptor positive status [ER+]; Z17.21 Progesterone receptor positive status; Z17.32 Human epidermal growth factor receptor 2 negative status; Z79.811 Long term (current) use of aromatase inhibitors; K74.60 Unspecified cirrhosis of liver; D72.819 Decreased white blood cell count, unspecified; G80.9 Cerebral palsy, unspecified; Z99.3 Dependence on wheelchair
CPT/HCPCS: 36591; 80053; 85025; A4216; J1642

== ENCOUNTER 2025-02-15 12:15 | Day surgery (SDC) | payer OTHER, SELFPAY ==
[2025-02-15] VITALS (9 sets, daily range): BP systolic 114–175; BP diastolic 67–109; PULSE 78–103; RESP 12–20; TEMP 36.9–37.1; O2SAT 95–99; BMI 31.7
[2025-02-15] MEDS: SODIUM CHLORIDE 0.9% 500 ML 500 ML 20 ML IV (13:50)
[2025-02-15] MEDS: ONDANSETRON INJ 2 MG/ML INJ 2 ML 4 MG IVP (13:56)
[2025-02-15] MEDS: MIDAZOLAM INJ 1 MG/ML VIAL 2 ML (ASD USE ONLY) 2 MG IVP (13:56)
[2025-02-15] MEDS: fentaNYL CIT INJ 50 mCg/ML AMP 2ML (ASD USE ONLY) IVP (13:56)
== END 2025-02-15 14:55 | disposition home or self-care (01) ==
PROVIDERS: PCP Nurse Practitioner Family; Referring Provider Specialist; Visit Provider Specialist
PROC: 0DBE8ZX Excision of Large Intestine, Via Natural or Artificial Opening Endoscopic, Diagnostic (ICD-10-PCS; CPT 45380; principal; 2025-02-15 13:00)
DX: Z12.11 Encounter for screening for malignant neoplasm of colon (principal); K64.1 Second degree hemorrhoids
CPT/HCPCS: 45378; A4649; J1200; J2250; J2405; J3010; J7999

== ENCOUNTER → 2025-03-04 | Outpatient (CLI) | payer OTHER, SELFPAY ==
[2025-03-04 11:09] LABS: Misc Send Out* See Sep Rpt
[2025-03-04 11:31] LABS: Basophils # (Auto) 0.1 Thou/mm3 (0.0-0.2); Basophils % (Auto) 3 % (0-2.5); Eosinophils # (Auto) 0.4 Thou/mm3 (0.0-0.5); Eosinophils % (Auto) 10 % (0-10); Hematocrit 38.7 % (36.0-46.0); Hemoglobin 13.5 g/dL (12.0-16.0); Immature Granulocytes Auto 0.01 Thou/mm3 (0.00-0.00); Immature Reticulocyte Fraction 15.9 % (3.0-15.9); Lymphocytes # (Auto) 1.2 Thou/mm3 (1.0-4.8); Lymphocytes % (Auto) 26 % (10-50); Mean Corpuscular HGB Conc 34.9 g/dl (31.0-37.0); Mean Corpuscular Hemoglobin 35.6 pg (25.0-35.0); Mean Corpuscular Volume 102 fL (80-100); Monocytes # (Auto) 0.2 Thou/mm3 (0.0-0.8); Monocytes % (Auto) 5 % (0-12); Neutrophils # (Auto) 2.5 Thou/mm3 (1.8-7.7); Neutrophils % (Auto) 56 % (37-80); Nucleated Red Blood Cell # 0.00 Thou/mm3 (0.00-0.00); Nucleated Red Blood Cell % 0 /100 WBC (0); Platelet Count 258 Thou/mm3 (140-440); RDW Standard Deviation 49.6 fL (36.4-46.3); Red Blood Count 3.79 Miln/mm3 (4.00-5.20); Reticulocyte % (Auto) 2.1 % (0.5-1.5); Reticulocyte Absolute Auto 81.1 Biln/L (25.0-75.0); Reticulocyte Hgb Content 41.7 pg (28.0-35.0); White Blood Count 4.4 Thou/mm3 (3.6-11.0)
[2025-03-04 11:48] LABS: Free T4 (Free Thyroxine) 1.14 ng/dL (0.89-1.76); Thyroid Stimulating Hormone 3.49 uIU/mL (0.55-4.78)
[2025-03-04 11:52] LABS: Iron 112 mcg/dL (50-170); Percent Iron Saturation 33 % (20-55); Total Iron Binding Capacity 332 mcg/dL (250-425); Unsaturated Iron Binding 220 (225-295)
[2025-03-07 06:40] LABS: Thyroid Peroxidase Antibodies* 342 IU/mL (<9)
== END | disposition home or self-care (01) ==
LOC: COPL 10:52
PROVIDERS: PCP Nurse Practitioner Family; Referring Provider Nurse Practitioner Family; Visit Provider Nurse Practitioner Family
DX: D50.9 Iron deficiency anemia, unspecified (principal); E06.3 Autoimmune thyroiditis
CPT/HCPCS: 36415; 83540; 83550; 84439; 84443; 84466; 85025; 85046; 86376

== ENCOUNTER 2025-04-23 09:18 | Outpatient (RCR) | payer OTHER, SELFPAY ==
[2025-04-16 10:20] LABS: Basophils # (Auto) 0.0 Thou/mm3 (0.0-0.2); Basophils % (Auto) 2 % (0-2.5); Eosinophils # (Auto) 0.0 Thou/mm3 (0.0-0.5); Eosinophils % (Auto) 2 % (0-10); Hematocrit 37.1 % (36.0-46.0); Hemoglobin 13.0 g/dL (12.0-16.0); Immature Granulocytes Auto 0.01 Thou/mm3 (0.00-0.00); Lymphocytes # (Auto) 0.9 Thou/mm3 (1.0-4.8); Lymphocytes % (Auto) 32 % (10-50); Mean Corpuscular HGB Conc 35.0 g/dl (31.0-37.0); Mean Corpuscular Hemoglobin 35.8 pg (25.0-35.0); Mean Corpuscular Volume 102 fL (80-100); Monocytes # (Auto) 0.2 Thou/mm3 (0.0-0.8); Monocytes % (Auto) 7 % (0-12); Neutrophils # (Auto) 1.6 Thou/mm3 (1.8-7.7); Neutrophils % (Auto) 57 % (37-80); Nucleated Red Blood Cell # 0.00 Thou/mm3 (0.00-0.00); Nucleated Red Blood Cell % 0 /100 WBC (0); Platelet Count 142 Thou/mm3 (140-440); RDW Standard Deviation 46.8 fL (36.4-46.3); Red Blood Count 3.63 Miln/mm3 (4.00-5.20); White Blood Count 2.7 Thou/mm3 (3.6-11.0)
[2025-04-16 10:41] LABS: Alanine Aminotransferase 29 U/L (10-49); Albumin, Serum 4.0 gm/dL (3.4-4.8); Albumin/Globulin Ratio 1.5 (1.2-2.2); Alkaline Phosphatase 81 U/L (46-116); Anion Gap 9 (7-16); Aspartate Amino Transferase 24 U/L (0-34); BUN/Creatinine Ratio 21 Ratio (12-20); Bilirubin,Total 0.5 mg/dL (0.3-1.2); Blood Urea Nitrogen 15 mg/dL (9-23); Calcium 9.5 mg/dL (8.3-10.6); Calcium (Corrected) 9.5 mg/dL (8.5-10.1); Carbon Dioxide 28.8 mMol/L (20.0-31.0); Chloride 106 mMol/L (98-107); Creatinine (Component) 0.7 mg/dL (0.6-1.3); Globulin 2.6 gm/dL (2.3-3.5); Glucose 130 mg/dL (74-106); Osmolality,Calculated 289 (275-295); Potassium 3.6 mMol/L (3.4-5.1); Sodium 144 mMol/L (136-145); Total Protein 6.6 gm/dL (5.7-8.2); eGFR > 60 See Note
[2025-04-16 10:57] LABS: CA 15-3 10.3 U/mL (<32.4)
== END 2025-04-24 23:59 | disposition home or self-care (01) ==
LOC: SCTC 09:18
PROVIDERS: PCP Nurse Practitioner Family; Referring Provider Nurse Practitioner Family; Visit Provider Internal Medicine Hematology & Oncology
DX: C50.112 Malignant neoplasm of central portion of left female breast (principal); Z17.0 Estrogen receptor positive status [ER+]; Z17.21 Progesterone receptor positive status; Z17.32 Human epidermal growth factor receptor 2 negative status; Z79.811 Long term (current) use of aromatase inhibitors; K74.60 Unspecified cirrhosis of liver
CPT/HCPCS: 36591; 80053; 85025; 86300; 96372; A4216; J0897; J1642